=== PATIENT | male | born 1970 | race Caucasian/White ===

== ENCOUNTER 2018-10-25 13:21 | Outpatient (CLI) | payer OTHER ==
[2018-10-25 14:35] LABS: #Basophils 0.1 thou/uL (0.0-0.2); #Eosinphils 0.5 thou/uL (0.0-0.7); #Lymphocytes 2.7 thou/uL (1.20-3.40); #Monocytes 0.8 thou/uL (0.11-0.59); #Neutrophils 8.8 thou/uL (1.40-6.50); %Basophils 0.8 % (0.0-1.0); %Lymphocytes 21.2 % (21.0-51.0); Hemoglobin 16.8 g/dL (14.0-18.0); Mean Corpuscular Hemoglobin 29.4 pg (27.0-31.0); Mean Corpuscular Volume 86.6 fL (78.0-98.0); Mean Platelet Volume 7.7 fL (7.4-10.4); Platelet Count 362 thou/uL (130-400); RBC Distribution Width 12.1 % (11.5-14.5); White Blood Cell (WBC) Count 12.9 thou/uL (4.8-10.8)
== END 2018-10-25 13:22 | disposition home or self-care (01) ==
LOC: LABBT 13:21
PROVIDERS: ATTEND Orthopaedic Surgery Hand Surgery
DX: Z01.812 Encounter for preprocedural laboratory examination (principal); S61.212D Laceration without foreign body of right middle finger without damage to nail, subsequent encounter
CPT/HCPCS: 85025

== ENCOUNTER 2018-10-27 10:20 | Day surgery (SDC) | payer OTHER ==
[2018-10-25 13:59] VITALS: BMI 29.5
[2018-10-27] MEDS ORDERED: Betamet Acet/Betamet Na Ph 30 MG/5 ML VIAL ONE (13:48)
[2018-10-27] MEDS ORDERED: Bacitracin Zinc Ointment 30 gm TUBE ONE (13:48)
[2018-10-27] MEDS ORDERED: Bupivacaine PF 0.5% 30 ML VIAL ONE (13:48)
[2018-10-27] MEDS ORDERED: Fentanyl 100 MCG/2 ML VIAL ONE ×2 (13:56→15:23)
[2018-10-27] MEDS ORDERED: Midazolam HCl 2 mg/2 ml Vial ONE (13:56)
[2018-10-27] MEDS ORDERED: Ketorolac Tromethamine 30 MG/ML VIAL ONE (15:23)
[2018-10-27] MEDS ORDERED: Lidocaine 1% PF 5 ML VIAL ONE (15:58)
[2018-10-27] MEDS ORDERED: PROPOFOL 200 MG/20 ML VIAL ONE (15:58)
[2018-10-27] MEDS ORDERED: PHENYLEPHRINE-NS 100 MCG/ML 10 ML SYRINGE ONE (15:58)
[2018-10-27] MEDS ORDERED: Dexamethasone 20 MG/5 ML VIAL ONE ×2 (15:58)
[2018-10-27] MEDS ORDERED: Ondansetron PF 4 MG/2 ML Vial ONE (15:58)
[2018-10-27] MEDS ORDERED: ePHEDrine 50 MG/ML VIAL ONE (15:58)
--- NOTE | 2018-10-28 19:36 | OP ---
DATE OF PROCEDURE: 10/27/2018 PREOPERATIVE DIAGNOSIS: A 30% extensive laceration zone 4 (1 cm proximal to the central slip), right middle finger. POSTOPERATIVE DIAGNOSIS: A 30% extensive laceration zone 4 (1 cm proximal to the central slip), right middle finger. PROCEDURES PERFORMED: 1. Debridement of joint. 2. Extensor tendon repair zone 4. 3. Debridement principles as follows;. a. Excisional. b. Depth was into the joint. c. There is no gross infection. d. The instruments used were as follows: Woodford blade; tenotomy scissors; curette; Adson; and irrigation with 1 L of normal saline with bulb syringe. TOURNIQUET TIME: 14 minutes. BLOOD LOSS: Approximately 10 mL. Again, the laceration was between 30 and 35% proximal to the central slip in the extensor tendon centroid. DESCRIPTION OF PROCEDURE: After successful general endotracheal anesthesia, the patient had the incision, which was slightly more radial than central extended 5 mm distal, 1 cm proximal. Tourniquet had been inflated and limb exsanguinated. We then excised the 1 mm skin circumferentially around a 5 mm laceration and then visualized the laceration saw, it was in the central portion. There was only approximately 30% to 35%, so we did not use a K-wire. We lifted up the laceration edges after debridement as listed above with instrumentation as listed above and irrigated the joint, which was seen underneath with a 1 L normal saline and under bulb syringe pressure with antibiotics inside. Then, held the finger hyperextension, repaired the tendon using a five interrupted 4-0 Prolene in a buried [id number] pattern. Then, we repaired to 45 degrees. No gap formation was seen. We deflated tourniquet, obtained hemostasis, closed the wound with interrupted 4-0 nylon in a mattress pattern interrupted. The patient then had a bulky dressing applied with a middle finger splint of AlumaFoam that held the finger in 0 degrees extension of PIP, we left DIP free. There was no complications. Job ID: [id number]
== END 2018-10-27 17:00 | disposition home or self-care (01) ==
LOC: SDC 10:20
PROVIDERS: ATTEND Orthopaedic Surgery Hand Surgery
PROC: 0LM70ZZ Reattachment of Right Hand Tendon, Open Approach (ICD-10-PCS; principal; 2018-10-27)
DX: S66.392A Other injury of extensor muscle, fascia and tendon of right middle finger at wrist and hand level, initial encounter (principal); S61.212A Laceration without foreign body of right middle finger without damage to nail, initial encounter; F17.220 Nicotine dependence, chewing tobacco, uncomplicated; Z79.2 Long term (current) use of antibiotics; Z79.899 Other long term (current) drug therapy; W20.8XXA Other cause of strike by thrown, projected or falling object, initial encounter; Y99.0 Civilian activity done for income or pay
CPT/HCPCS: J0690; J0702; J1100; J1885; J2001; J2250; J2405; J2704; J3010; J3490; Q4049; S0020